=== PATIENT | male | born 1940 | race Two or more races ===

== ENCOUNTER 2018-06-22 20:51 | Inpatient (IN) | payer MEDICARE, OTHER ==
[~2018-06-22] VITALS: Ht 157.5 cm; Wt 67.6 kg
--- NOTE | 2018-06-22 21:00 | NUR ---
TO BED 10 BIB EMS FROM [facility] C/O BEING AGGRESSIVE TOWARD OTHERS. PT CONFUSED, AAOX4 NO ACUTE DISTRESS NOTED, RESP EVEN AND UNLABORED. PT DENIES PAIN OR DISCOMFORT AT THIS TIME. PENDING ER MD CHOUDHURY. PT CALM AND COOPERATIVE AT THIS TIME. WILL CONTINUE TO MONITOR PT CLOSELY.
--- NOTE | 2018-06-22 21:23 | NUR ---
COMMERCIAL ARTIST AT BEDSIDE FOR BLOOD DRAW. PT UNABLE TO PROVIDE URINE SAMPLE AT THIS TIME.
[2018-06-22] MEDS ORDERED: LORAZEPAM INJ 2 MG/ML VIAL IM ONE (21:30)
[2018-06-22] MEDS ORDERED: HALOPERIDOL LACTATE INJ 5 MG/ML VIAL IM ONE (21:30)
[2018-06-22] MEDS ORDERED: LORAZEPAM INJ 2 MG/ML VIAL ONE (21:31)
[2018-06-22] MEDS ORDERED: HALOPERIDOL LACTATE INJ 5 MG/ML VIAL ONE (21:31)
[2018-06-22 21:37] LABS: BASOPHILS % (AUTO) 0.3 % (0.0-2.0); EOSINOPHILS % (AUTO) 1.3 % (0.0-6.0); HEMATOCRIT 43 % (39-51); HEMOGLOBIN 14.7 g/dL (13.5-17.5); LYMPHOCYTES # (AUTO) 1.6 /CMM (0.8-4.8); MEAN CORPUSCULAR HGB CONC 34 g/dl (31.0-36.0); MEAN CORPUSCULAR VOLUME 89 fL (80-96); MONOCYTES # (AUTO) 0.6 /CMM (0.1-1.30); MONOCYTES % (AUTO) 10.5 % (2.0-12.0); NEUTROPHILS # (AUTO) 3.6 /CMM (1.8-8.9); NEUTROPHILS % (AUTO) 60.9 % (43.0-81.0); PLATELET COUNT (AUTO) 202 /CMM (150-450); RED BLOOD CELL COUNT(AUTO) 4.87 MIL/uL (4.5-6.0); WHITE BLOOD COUNT (AUTO) 5.8 K/uL (4.3-11.0)
[2018-06-22 21:45] LABS: CARBON DIOXIDE 28 mmol/L (21-32); CHLORIDE 98 mmol/L (98-107); CREATININE 1.2 mg/dL (0.6-1.3); GLUCOSE 187 mg/dL (74-106); POTASSIUM 4.9 mmol/L (3.5-5.1); SODIUM SERUM 136 mmol/L (136-145); UREA NITROGEN, BLOOD 13 mg/dL (7-18)
[2018-06-22] MEDS ORDERED: LIDOCAINE 2% JEL UROJET 10 ML MM ONE ×2 (21:45→23:30)
[2018-06-22 21:53] LABS: ACETAMINOPHEN < 2 ug/ml (10-30); ALANINE AMINOTRANSFERASE 43 U/L (12-78); ALBUMIN 3.7 g/dL (3.4-5.0); ALCOHOL, BLOOD < 3 mg/dL (0-0); ALKALINE PHOSPHATASE 89 U/L (46-116); ASPARTATE AMINOTRANSFERASE 30 U/L (15-37); BILIRUBIN,DIRECT 0.2 mg/dL (0.0-0.2); BILIRUBIN,TOTAL 0.5 mg/dL (0.2-1.0); SALICYLATE 1.2 mg/dL (2.8-20.0); TOTAL PROTEIN, SERUM 7.2 g/dL (6.4-8.2)
--- NOTE | 2018-06-22 22:15 | NUR ---
PLACE PT ON BILATERAL WRIST ERSTRAINTS PER ER BETTYE PEREZ ORDER DUE TO PT VERBALLY ABUSIVE AND KEEP THREATENING TO HIT STAFF. PT WAS ALSO NOTED WANDERING THE HALLWAY MULTIPLE TIMES.
[2018-06-22 23:13] LABS: APPEARANCE,URINE CLEAR (CLEAR); BILIRUBIN,URINE NEGATIVE (NEGATIVE); BLOOD, URINE TRACE-INTA Ery/uL (NEGATIVE); COLOR,URINE YELLOW (YELLOW); KETONES,URINE NEGATIVE (NEGATIVE); LEUKOCYTE ESTERASE ,URINE NEGATIVE (NEGATIVE); NITRITE, URINE NEGATIVE (NEGATIVE); PROTEIN,URINE NEGATIVE (NEGATIVE); UGLUCOSE NEGATIVE (NEGATIVE); UROBILINOGEN,URINE 0.2 EU/dL (0.2)
[2018-06-22 23:23] LABS: BACTERIA,URINE None seen /HPF (None Seen); SQUAMOUS EPITHELIAL CELL,UR Few /HPF (None Seen); WBC,URINE 0-2 /HPF (0-3)
--- NOTE | 2018-06-23 00:02 | NUR ---
PT ASLEEP, NO ACUTE DISTRESS NOTED, RESP EVEN AND UNLABORED. CALL LIGHT WIHTIN REACH. WILL CONTINUE TO MONITOR PT CLOSELY.
--- NOTE | 2018-06-23 00:38 | NUR ---
JACOBY BAHENA SUPERVISOR BRAIDING HERE FOR PSYCH EVAL.
--- NOTE | 2018-06-23 01:38 | NUR ---
REPORT CALLED TO CHU CHAVEZ. WILL TRANSPORT PT TO ROOM 211-B
[2018-06-23] MEDS ORDERED: DONE10TA44 PO (01:48)
[2018-06-23] MEDS ORDERED: BENA20TA9 PO (01:48)
[2018-06-23] MEDS ORDERED: MELA3TAB PO (01:48)
[2018-06-23] MEDS ORDERED: CLOT15CR63 TP (01:48)
[2018-06-23] MEDS ORDERED: MAGN400T6 PO (01:48)
[2018-06-23] MEDS ORDERED: OXCA300T15 PO ×2 (01:48→07:46)
--- NOTE | 2018-06-23 01:50 | NUR ---
Admitted a 78-year-old male from [facility] assisted living and evaluated at [facility] ER brought in by ER staff via wheelchair, on 5150 hold as GD, per hold patient is confused, disorganized, aggressive toward staff. Patient received Haldol, ativan and 2 point restraints d/t aggressive behavior. Patient admitting dx. is psychosis and medical dx. is dementia and hypertension. The patient is a DNR with primary goal of comfort care. Upon face to face evaluation, patient asleep, arousable to verbal and tactile stimuli, no sob, no acute distress, breathing even and unlabored, patient appeared confused, disorganized, easily agitated, refused to cooperate, alert and oriented x 1, and unable to sign paper works. Patient is under the care of Dr. Saravia and Dr. Gutierrez to reconcile the medication. Belonging inspected for contraband checking. All needs attended and met, will continue to monitor [id number] for safety
[2018-06-23] MEDS ORDERED: TRAZ-182 PO (01:56)
[2018-06-23] MEDS ORDERED: PIOG30TA10 PO (01:56)
[2018-06-23] MEDS ORDERED: QUET25TA PO (01:56)
[2018-06-23] MEDS ORDERED: CHOL50004 PO (01:56)
[2018-06-23] MEDS ORDERED: CALC-15 PO (01:56)
[2018-06-23] MEDS ORDERED: FLUO15CR TP (01:56)
[2018-06-23] MEDS ORDERED: CYAN50008 PO (01:56)
[2018-06-23] MEDS ORDERED: QUET100T PO (01:56)
[2018-06-23] MEDS ORDERED: ACETAMINOPHEN 325 MG TABLET PO PRN (02:30)
[2018-06-23] MEDS ORDERED: MAG HYDROX/AL HYDROX/SIMETH 30 ML UDC PO PRN (02:30)
[2018-06-23] MEDS ORDERED: MAGNESIUM HYDROXIDE 30 ML UDC PO PRN (02:30)
[2018-06-23 02:50] VITALS: BP 135/75
--- NOTE | 2018-06-23 04:48 | NUR ---
GPS RN NOTE: PATIENT IN STABLE CONDITION, NO SOB, NO ACUTE DISTRESS, BREATHING EVEN AND UNLABORED, ENDORSED FOR CONTINUITY OF CARE
[2018-06-23] MEDS ORDERED: clonazePAM 0.5 MG TABLET PO SCH (05:00)
[2018-06-23] MEDS ORDERED: CALC-7 PO (07:46)
[2018-06-23 08:00] VITALS: BP 130/80
[2018-06-23] MEDS: OXCARBAZEPINE 150 MG TABLET PO SCH ×2 (10:58→16:25)
[2018-06-23] MEDS: QUETIAPINE FUMARATE 25 MG TABLET PO SCH ×3 (10:58→16:25)
--- NOTE | 2018-06-23 11:59 | NUR ---
GIORGI GARCIA SKIN LAP BONDER IN THE UNIT AND MADE AWARE TO RECONCILE MEDS.
[2018-06-23 15:59] VITALS: BP 138/82
[2018-06-23] MEDS ORDERED: FLUOCINONIDE 0.05% CREAM 60 GM TUBE TP PRN (18:00)
[2018-06-23] MEDS ORDERED: DEXTROSE 50%-WATER 50 ML DISP.SYRIN IV PRN (18:00)
[2018-06-23 20:00] VITALS: BP 118/63
[2018-06-23] MEDS: TRAZODONE 50 MG TABLET PO SCH (21:16)
[2018-06-23] MEDS: BLOOD SUGAR DIAGNOSTIC 1 EACH STRIP IN SCH (21:16)
[2018-06-23] MEDS: DONEPEZIL 5 MG TABLET PO SCH (21:16)
[2018-06-23] MEDS: TEMAZEPAM 7.5 MG CAPSULE PO PRN (21:17)
[2018-06-24] MEDS: BLOOD SUGAR DIAGNOSTIC 1 EACH STRIP IN SCH ×4 (07:30→21:27)
[2018-06-24 08:01] VITALS: BP 151/87
[2018-06-24] MEDS: BENAZEPRIL HCL 10 MG TABLET PO SCH (08:50)
[2018-06-24] MEDS: OXCARBAZEPINE 150 MG TABLET PO SCH ×2 (08:50→16:23)
[2018-06-24] MEDS: PIOGLITAZONE HCL 15 MG TABLET PO SCH (08:51)
[2018-06-24] MEDS: CYANOCOBALAMIN 500 MCG TABLET PO SCH (08:51)
[2018-06-24] MEDS: QUETIAPINE FUMARATE 25 MG TABLET PO SCH ×3 (08:51→16:23)
[2018-06-24] MEDS: CHOLECALCIFEROL 1,000 UNIT TABLET (VIT D3) PO SCH (08:51)
[2018-06-24] MEDS: MAGNESIUM OXIDE 400 MG TABLET PO SCH (08:51)
[2018-06-24] MEDS: CALCIUM CARB 250MG /VITAMIN D 1 UDTAB PO SCH (08:51)
[2018-06-24] MEDS: CLOTRIMAZOLE 1% 15 GM TUBE TP SCH ×2 (08:56→16:23)
[2018-06-24 11:23] LABS: BASOPHILS % (AUTO) 0.3 % (0.0-2.0); EOSINOPHILS % (AUTO) 0.6 % (0.0-6.0); HEMATOCRIT 44 % (39-51); HEMOGLOBIN 15.2 g/dL (13.5-17.5); LYMPHOCYTES # (AUTO) 0.8 /CMM (0.8-4.8); LYMPHOCYTES % (AUTO) 13.1 % (20.0-44.0); MEAN CORPUSCULAR HGB CONC 35 g/dl (31.0-36.0); MEAN CORPUSCULAR VOLUME 87 fL (80-96); MONOCYTES # (AUTO) 0.5 /CMM (0.1-1.30); MONOCYTES % (AUTO) 8.3 % (2.0-12.0); NEUTROPHILS # (AUTO) 4.5 /CMM (1.8-8.9); NEUTROPHILS % (AUTO) 77.7 % (43.0-81.0); PLATELET COUNT (AUTO) 215 /CMM (150-450); RED BLOOD CELL COUNT(AUTO) 5.04 MIL/uL (4.5-6.0); WHITE BLOOD COUNT (AUTO) 5.8 K/uL (4.3-11.0)
[2018-06-24 11:36] LABS: ALANINE AMINOTRANSFERASE 58 U/L (12-78); ALKALINE PHOSPHATASE 79 U/L (46-116); ASPARTATE AMINOTRANSFERASE 46 U/L (15-37); BILIRUBIN,TOTAL 0.8 mg/dL (0.2-1.0); CALCIUM, SERUM 9.5 mg/dL (8.5-10.1); CARBON DIOXIDE 23 mmol/L (21-32); CHLORIDE 93 mmol/L (98-107); CREATININE 0.8 mg/dL (0.6-1.3); GLUCOSE 189 mg/dL (74-106); POTASSIUM 3.9 mmol/L (3.5-5.1); SODIUM SERUM 129 mmol/L (136-145); TOTAL PROTEIN, SERUM 7.6 g/dL (6.4-8.2); UREA NITROGEN, BLOOD 15 mg/dL (7-18)
[2018-06-24 11:37] LABS: CHOLESTEROL 149 mg/dL (<200); HDL CHOLESTEROL 48 mg/dL (40-60); LDL 99 mg/dL (0-99); TRIGLYCERIDES 52 mg/dL (30-150)
[2018-06-24 16:22] VITALS: BP 146/84
[2018-06-24 20:00] VITALS: BP 153/72
[2018-06-24] MEDS: DONEPEZIL 5 MG TABLET PO SCH (21:23)
[2018-06-24] MEDS: TRAZODONE 50 MG TABLET PO SCH (21:23)
[2018-06-24] MEDS: INSULIN REGULAR, HUMAN 100 UNIT/ML 3 ML VIAL SQ PRN (21:29)
[2018-06-24 23:00] VITALS: BP 136/78
[2018-06-24] MEDS: TEMAZEPAM 7.5 MG CAPSULE PO PRN (23:18)
[2018-06-25 07:09] LABS: CALCIUM, SERUM 9.8 mg/dL (8.5-10.1); CARBON DIOXIDE 25 mmol/L (21-32); CHLORIDE 93 mmol/L (98-107); CREATININE 0.9 mg/dL (0.6-1.3); GLUCOSE 181 mg/dL (74-106); POTASSIUM 4.3 mmol/L (3.5-5.1); SODIUM SERUM 130 mmol/L (136-145); UREA NITROGEN, BLOOD 19 mg/dL (7-18)
[2018-06-25] MEDS: BLOOD SUGAR DIAGNOSTIC 1 EACH STRIP IN SCH ×4 (07:46→21:49)
[2018-06-25] MEDS: INSULIN REGULAR, HUMAN 100 UNIT/ML 3 ML VIAL SQ PRN ×4 (07:48→22:03)
[2018-06-25 08:00] VITALS: BP 159/94
[2018-06-25] MEDS: MAGNESIUM OXIDE 400 MG TABLET PO SCH (08:52)
[2018-06-25] MEDS: PIOGLITAZONE HCL 15 MG TABLET PO SCH (08:52)
[2018-06-25] MEDS: CHOLECALCIFEROL 1,000 UNIT TABLET (VIT D3) PO SCH (08:53)
[2018-06-25] MEDS: CYANOCOBALAMIN 500 MCG TABLET PO SCH (08:53)
[2018-06-25] MEDS: OXCARBAZEPINE 150 MG TABLET PO SCH ×2 (08:53→18:05)
[2018-06-25] MEDS: QUETIAPINE FUMARATE 25 MG TABLET PO SCH ×3 (08:53→18:05)
[2018-06-25] MEDS: BENAZEPRIL HCL 10 MG TABLET PO SCH (08:53)
[2018-06-25] MEDS: CALCIUM CARB 250MG /VITAMIN D 1 UDTAB PO SCH (08:53)
[2018-06-25] MEDS: CLOTRIMAZOLE 1% 15 GM TUBE TP SCH ×2 (08:54→18:05)
--- NOTE | 2018-06-25 12:00 | NUR ---
SW contacted [facility] Address: [address] [place] [address] and spoke with Aisha, title coordinator who stated she needed to assess pt before being able to determine whether facility can take him back. OCTAVIO will fax clinical information once pt is stable.
--- NOTE | 2018-06-25 12:02 | NUR ---
SW contacted pts Kenna [phone] to discuss discharge planning and collateral information. SW informed pts that [facility] had stated that they would determine whether pt can return to facility upon an evaluation once pt is stable. SW provide pts with alternative discharge options such as a [facility]cfp. Pts will explore m[facility]p options.
--- NOTE | 2018-06-25 12:21 | NUR ---
INITIAL DISCHARGE PLAN: Patients Kenna [phone] wishes for pt to be discharged to [facility] Address: [address], [place] [address] . However, is willing to explore SNF options if Assisted Living Facility does not accept pt back. SW will help form a safe and proper discharge with pts and MD.
[2018-06-25] MEDS ORDERED: IV NS 0.9% 500 ML IV ONE (15:00)
[2018-06-25 16:00] VITALS: BP 147/71
[2018-06-25 20:02] VITALS: BP 173/62
[2018-06-25] MEDS: TRAZODONE 50 MG TABLET PO SCH (21:26)
[2018-06-25] MEDS: DONEPEZIL 5 MG TABLET PO SCH (21:26)
[2018-06-25] MEDS: TEMAZEPAM 7.5 MG CAPSULE PO PRN (23:08)
[2018-06-26] MEDS: BLOOD SUGAR DIAGNOSTIC 1 EACH STRIP IN SCH ×4 (07:56→21:34)
[2018-06-26 08:00] VITALS: BP 150/95
[2018-06-26] MEDS: QUETIAPINE FUMARATE 25 MG TABLET PO SCH ×3 (08:46→16:47)
[2018-06-26] MEDS: OXCARBAZEPINE 150 MG TABLET PO SCH ×2 (08:46→16:47)
[2018-06-26] MEDS: PIOGLITAZONE HCL 15 MG TABLET PO SCH (08:46)
[2018-06-26] MEDS: CHOLECALCIFEROL 1,000 UNIT TABLET (VIT D3) PO SCH (08:46)
[2018-06-26] MEDS: CALCIUM CARB 250MG /VITAMIN D 1 UDTAB PO SCH (08:46)
[2018-06-26] MEDS: CYANOCOBALAMIN 500 MCG TABLET PO SCH (08:46)
[2018-06-26] MEDS: BENAZEPRIL HCL 10 MG TABLET PO SCH (08:47)
[2018-06-26] MEDS: MAGNESIUM OXIDE 400 MG TABLET PO SCH (08:58)
[2018-06-26] MEDS: INSULIN REGULAR, HUMAN 100 UNIT/ML 3 ML VIAL SQ PRN ×3 (09:34→17:19)
[2018-06-26] MEDS: CLOTRIMAZOLE 1% 15 GM TUBE TP SCH ×2 (10:17→16:46)
[2018-06-26 16:03] VITALS: BP 133/73
[2018-06-26 16:32] LABS: CALCIUM, SERUM 9.6 mg/dL (8.5-10.1); CARBON DIOXIDE 25 mmol/L (21-32); CHLORIDE 92 mmol/L (98-107); CREATININE 0.9 mg/dL (0.6-1.3); GLUCOSE 186 mg/dL (74-106); POTASSIUM 4.1 mmol/L (3.5-5.1); SODIUM SERUM 130 mmol/L (136-145); UREA NITROGEN, BLOOD 23 mg/dL (7-18)
--- NOTE | 2018-06-26 17:36 | NUR ---
GPS/RN-NOTES INDUSTRIAL CLEANER YUDITH MADE AWARE OF PATIENT LAB RESULT OF NA130 AND BUN 23 WITH NNO.
[2018-06-26 19:54] VITALS: BP 129/84
[2018-06-26] MEDS: DONEPEZIL 5 MG TABLET PO SCH (21:34)
[2018-06-26] MEDS: TRAZODONE 50 MG TABLET PO SCH (21:34)
[2018-06-26] MEDS: TEMAZEPAM 7.5 MG CAPSULE PO PRN (22:21)
[2018-06-27] MEDS: BLOOD SUGAR DIAGNOSTIC 1 EACH STRIP IN SCH ×4 (07:30→21:57)
[2018-06-27 08:00] VITALS: BP 102/59
[2018-06-27] MEDS: OXCARBAZEPINE 150 MG TABLET PO SCH ×2 (08:53→16:35)
[2018-06-27] MEDS: PIOGLITAZONE HCL 15 MG TABLET PO SCH (08:53)
[2018-06-27] MEDS: CYANOCOBALAMIN 500 MCG TABLET PO SCH (08:54)
[2018-06-27] MEDS: CHOLECALCIFEROL 1,000 UNIT TABLET (VIT D3) PO SCH (08:54)
[2018-06-27] MEDS: QUETIAPINE FUMARATE 25 MG TABLET PO SCH ×3 (08:54→16:35)
[2018-06-27] MEDS: MAGNESIUM OXIDE 400 MG TABLET PO SCH (08:54)
[2018-06-27] MEDS: CALCIUM CARB 250MG /VITAMIN D 1 UDTAB PO SCH (08:54)
[2018-06-27] MEDS: BENAZEPRIL HCL 10 MG TABLET PO SCH (08:56)
[2018-06-27] MEDS: CLOTRIMAZOLE 1% 15 GM TUBE TP SCH ×2 (09:00→16:35)
[2018-06-27 16:00] VITALS: BP 128/73
--- NOTE | 2018-06-27 17:45 | NUR ---
GPS RN NOTE: PT NOTED WITH EXCORIATION ON HIS BUTTOCK AREA, WOUND CONSULT TRIGGERED, Z GUARD ORDERED , CN AWARE, PICTURE PLACED IN THE CHART . WILL CONTINUE MONITORING. Addendum: 06/27/18 at 1800 by ALYX LANDRY RN NURSING HARNESS BUILDER , LONNIE ZURITA PT WAS NOTIFIED.
[2018-06-27 20:00] VITALS: BP 152/88
[2018-06-27] MEDS: TRAZODONE 50 MG TABLET PO SCH (21:57)
[2018-06-27] MEDS: DONEPEZIL 5 MG TABLET PO SCH (21:57)
[2018-06-27] MEDS: INSULIN REGULAR, HUMAN 100 UNIT/ML 3 ML VIAL SQ PRN (21:58)
[2018-06-27] MEDS: TEMAZEPAM 7.5 MG CAPSULE PO PRN (23:09)
[2018-06-27 23:58] VITALS: BP 140/80
[2018-06-28] MEDS: BLOOD SUGAR DIAGNOSTIC 1 EACH STRIP IN SCH ×4 (07:38→22:07)
[2018-06-28 08:00] VITALS: BP 125/62
[2018-06-28] MEDS: QUETIAPINE FUMARATE 25 MG TABLET PO SCH ×3 (08:44→16:11)
[2018-06-28] MEDS: MAGNESIUM OXIDE 400 MG TABLET PO SCH (08:44)
[2018-06-28] MEDS: OXCARBAZEPINE 150 MG TABLET PO SCH ×2 (08:44→16:12)
[2018-06-28] MEDS: CHOLECALCIFEROL 1,000 UNIT TABLET (VIT D3) PO SCH (08:44)
[2018-06-28] MEDS: PIOGLITAZONE HCL 15 MG TABLET PO SCH (08:44)
[2018-06-28] MEDS: CYANOCOBALAMIN 500 MCG TABLET PO SCH (08:44)
[2018-06-28] MEDS: CALCIUM CARB 250MG /VITAMIN D 1 UDTAB PO SCH (08:44)
[2018-06-28] MEDS: Z GUARD REMEDY 4 OZ OINT TP SCH ×2 (08:45→16:17)
[2018-06-28] MEDS: BENAZEPRIL HCL 10 MG TABLET PO SCH (08:48)
[2018-06-28] MEDS: CLOTRIMAZOLE 1% 15 GM TUBE TP SCH ×2 (08:54→16:13)
--- NOTE | 2018-06-28 11:32 | NUR ---
OCTAVIO called Aisha ([phone]), medical staff coordinator at [facility], and informed her that the psychiatrist, Dr. Saravia, would like to have the facility assess the pt tomorrow so that if they do not take him back we can begin to look into other options. She stated that she would call the SW back if one of the nurses can make time to assess the pt.
--- NOTE | 2018-06-28 11:34 | NUR ---
OCTAVIO contacted pt's , Kenna ([phone]), and informed her that [facility] is going to assess the pt soon but we would like to have a backup option just in case. She stated that she did not like the nursing homes that were recommended to her and that she would like to consider [facility]. OCTAVIO referred her to [facility] and stated that she would provide more referrals if necessary.
--- NOTE | 2018-06-28 11:54 | NUR ---
Aisha ([phone]), event promotions coordinator at [facility], called the SW back and informed her that a nurse will be arriving the next day in the morning to assess the pt.
--- NOTE | 2018-06-28 12:32 | NUR ---
WOUND CARE CONSULT,SEEN PATIENT AT BEDSIDE, SEE WOUND ELIGIBILITY MANAGER IN [facility] FOR TODAY , MARIO 18 ,PATIENT NEEDS PROMPTING FOR REPOSITIONING,TX PLAN AND SKIN MANAGEMENT DISCUSSED WITH NURSING STAFF, WILL SEE PATIENT PRN Addendum: 06/28/18 at 1237 by SJ YUEN RN Amended: Links added.
[2018-06-28] MEDS: VITAMINS A AND D 56.7 GM TUBE TP SCH (15:24)
[2018-06-28 16:00] VITALS: BP 141/95
--- NOTE | 2018-06-28 17:16 | NUR ---
GPS RN NOTE: PER PT FAMILY REQUEST NOT TO GIVE INSULIN ,Cathleen ZURITA NOTIFIED T.O.ORDER DC INSULIN S/S , ORDER PLACED AND CARED OUT . WILL CONTINUE MONITORING.
[2018-06-28 20:00] VITALS: BP 122/76
[2018-06-28] MEDS: clonazePAM 0.5 MG TABLET PO PRN (22:07)
[2018-06-28] MEDS: TRAZODONE 50 MG TABLET PO SCH (22:07)
[2018-06-28] MEDS: DONEPEZIL 5 MG TABLET PO SCH (22:07)
[2018-06-29] MEDS: TEMAZEPAM 7.5 MG CAPSULE PO PRN ×2 (00:28→22:36)
[2018-06-29 08:00] VITALS: BP 152/76
--- NOTE | 2018-06-29 08:00 | NUR ---
GPS RN AM NOTES RECEIVED PT SLEEPING COMFORTABLY,AROUSABLE AND REFUSED BLOOD SUGAR CHECK,PT DOESN'T WANT TO BE BOTHERED.WILL TRY LATER. A&OX1, CONFUSED, DISORIENTED, DISORGANIZED, EASILY AGITATED, NEEDS FREQUENTLY REDIRECTIONS, COMPLIANT WITH MEDS, NO COMPLAIN OF PAIN/DISCOMFORT, NO S/S DISTRESS NOTED, NO ACUTE DISTRESS NOTED, WILL CONTINUE TO MONITOR FOR SAFETY AND BEHAVIOR [id number]
[2018-06-29] MEDS: CHOLECALCIFEROL 1,000 UNIT TABLET (VIT D3) PO SCH (08:25)
[2018-06-29] MEDS: PIOGLITAZONE HCL 15 MG TABLET PO SCH (08:25)
[2018-06-29] MEDS: OXCARBAZEPINE 150 MG TABLET PO SCH ×2 (08:25→16:55)
[2018-06-29] MEDS: MAGNESIUM OXIDE 400 MG TABLET PO SCH (08:25)
[2018-06-29] MEDS: BENAZEPRIL HCL 10 MG TABLET PO SCH (08:25)
[2018-06-29] MEDS: QUETIAPINE FUMARATE 25 MG TABLET PO SCH ×4 (08:25→17:00)
[2018-06-29] MEDS: clonazePAM 0.5 MG TABLET PO PRN ×2 (08:25→21:23)
[2018-06-29] MEDS: CALCIUM CARB 250MG /VITAMIN D 1 UDTAB PO SCH (08:25)
[2018-06-29] MEDS: VITAMINS A AND D 56.7 GM TUBE TP SCH (08:27)
[2018-06-29] MEDS: CYANOCOBALAMIN 500 MCG TABLET PO SCH (08:28)
[2018-06-29] MEDS: Z GUARD REMEDY 4 OZ OINT TP SCH ×2 (08:30→16:57)
[2018-06-29] MEDS: CLOTRIMAZOLE 1% 15 GM TUBE TP SCH ×2 (08:30→16:57)
[2018-06-29] MEDS: BLOOD SUGAR DIAGNOSTIC 1 EACH STRIP IN SCH ×4 (10:06→22:35)
--- NOTE | 2018-06-29 11:47 | NUR ---
Annette ([phone]), from [facility], came to assess the pt and stated that she just had a few concerns about the medications that she spoke to the pt's nurse about so that the message can be relayed to the psychiatrist. She then stated that she would be returning on Monday to see the pt and get the Physicians 602 form signed by the medical doctor.
--- NOTE | 2018-06-29 13:01 | NUR ---
PT SLEEPING BUT AROUSABLE.PT DOESN'T WANT TO BE BOTHERED.WILL CHECK BLOOD SUGAR LATER..
--- NOTE | 2018-06-29 13:24 | NUR ---
SW contacted pt's , Kenna ([phone]), and informed her that the pt was assessed by [facility] and that they have one medication adjustment that they are requesting before accepting the pt back.
[2018-06-29 16:00] VITALS: BP 106/80
--- NOTE | 2018-06-29 18:54 | NUR ---
PT SLEPT FOR 10 HRS AND JUST WAKES UP FOR MEALS.PT STAYED IN BED DURING THE SHIFT.SACRAL WOUND TX DONE TO EVERY INCONTINENT EPISODE.TURNED EVERY TWO HRS AND KEPT CLEAN AND DRY.DENIES ANY PAIN OR DISTRESS.WILL MONITOR.
[2018-06-29 20:00] VITALS: BP 119/61
[2018-06-29] MEDS: DONEPEZIL 5 MG TABLET PO SCH (22:35)
[2018-06-29] MEDS: TRAZODONE 50 MG TABLET PO SCH (22:35)
[2018-06-30] MEDS: BLOOD SUGAR DIAGNOSTIC 1 EACH STRIP IN SCH ×4 (07:38→21:29)
[2018-06-30 08:21] VITALS: BP 140/79
[2018-06-30] MEDS: OXCARBAZEPINE 150 MG TABLET PO SCH ×2 (09:00→17:21)
[2018-06-30] MEDS: MAGNESIUM OXIDE 400 MG TABLET PO SCH (09:00)
[2018-06-30] MEDS: CALCIUM CARB 250MG /VITAMIN D 1 UDTAB PO SCH (09:01)
[2018-06-30] MEDS: QUETIAPINE FUMARATE 25 MG TABLET PO SCH ×3 (09:01→17:21)
[2018-06-30] MEDS: CYANOCOBALAMIN 500 MCG TABLET PO SCH (09:02)
[2018-06-30] MEDS: BENAZEPRIL HCL 10 MG TABLET PO SCH (09:02)
[2018-06-30] MEDS: CHOLECALCIFEROL 1,000 UNIT TABLET (VIT D3) PO SCH (09:03)
[2018-06-30] MEDS: PIOGLITAZONE HCL 15 MG TABLET PO SCH (09:06)
[2018-06-30] MEDS: VITAMINS A AND D 56.7 GM TUBE TP SCH (10:16)
[2018-06-30] MEDS: Z GUARD REMEDY 4 OZ OINT TP SCH ×2 (10:16→17:21)
[2018-06-30] MEDS: CLOTRIMAZOLE 1% 15 GM TUBE TP SCH ×2 (10:16→17:22)
[2018-06-30 16:00] VITALS: BP 119/69
[2018-06-30 20:00] VITALS: BP 146/84
[2018-06-30] MEDS: TRAZODONE 50 MG TABLET PO SCH (21:29)
[2018-06-30] MEDS: clonazePAM 0.5 MG TABLET PO PRN (21:29)
[2018-06-30] MEDS: DONEPEZIL 5 MG TABLET PO SCH (21:29)
[2018-07-01] MEDS: BLOOD SUGAR DIAGNOSTIC 1 EACH STRIP IN SCH ×4 (07:33→22:00)
[2018-07-01 08:00] VITALS: BP 139/63
[2018-07-01] MEDS: OXCARBAZEPINE 150 MG TABLET PO SCH ×2 (08:19→16:45)
[2018-07-01] MEDS: CYANOCOBALAMIN 500 MCG TABLET PO SCH (08:19)
[2018-07-01] MEDS: CHOLECALCIFEROL 1,000 UNIT TABLET (VIT D3) PO SCH (08:19)
[2018-07-01] MEDS: CALCIUM CARB 250MG /VITAMIN D 1 UDTAB PO SCH (08:19)
[2018-07-01] MEDS: QUETIAPINE FUMARATE 25 MG TABLET PO SCH ×3 (08:20→16:45)
[2018-07-01] MEDS: BENAZEPRIL HCL 10 MG TABLET PO SCH (08:20)
[2018-07-01] MEDS: PIOGLITAZONE HCL 15 MG TABLET PO SCH (08:20)
[2018-07-01] MEDS: MAGNESIUM OXIDE 400 MG TABLET PO SCH (08:20)
[2018-07-01] MEDS: CLOTRIMAZOLE 1% 15 GM TUBE TP SCH ×2 (09:23→16:55)
[2018-07-01] MEDS: Z GUARD REMEDY 4 OZ OINT TP SCH ×2 (09:24→16:55)
[2018-07-01] MEDS: VITAMINS A AND D 56.7 GM TUBE TP SCH (09:24)
--- NOTE | 2018-07-01 10:10 | NUR ---
PT. REMOVED THE MEPILEX AND REFUSED TO PUT A NEW ONE AND STARTED TO BE IRRITABLE AND WILL OFFER LATER.
[2018-07-01 16:00] VITALS: BP 100/60
[2018-07-01 20:07] VITALS: BP 111/66
[2018-07-01] MEDS: DONEPEZIL 5 MG TABLET PO SCH (20:40)
[2018-07-01] MEDS: TRAZODONE 50 MG TABLET PO SCH (20:41)
[2018-07-02 08:00] VITALS: BP 136/66
[2018-07-02] MEDS: QUETIAPINE FUMARATE 25 MG TABLET PO SCH ×3 (08:36→17:39)
[2018-07-02] MEDS: BLOOD SUGAR DIAGNOSTIC 1 EACH STRIP IN SCH ×4 (08:36→22:04)
[2018-07-02] MEDS: CYANOCOBALAMIN 500 MCG TABLET PO SCH (08:37)
[2018-07-02] MEDS: BENAZEPRIL HCL 10 MG TABLET PO SCH (08:37)
[2018-07-02] MEDS: MAGNESIUM OXIDE 400 MG TABLET PO SCH (08:38)
[2018-07-02] MEDS: CHOLECALCIFEROL 1,000 UNIT TABLET (VIT D3) PO SCH (08:38)
[2018-07-02] MEDS: OXCARBAZEPINE 150 MG TABLET PO SCH ×2 (08:38→17:39)
[2018-07-02] MEDS: PIOGLITAZONE HCL 15 MG TABLET PO SCH (08:39)
[2018-07-02] MEDS: Z GUARD REMEDY 4 OZ OINT TP SCH (08:43)
[2018-07-02] MEDS: VITAMINS A AND D 56.7 GM TUBE TP SCH (08:43)
[2018-07-02] MEDS: CALCIUM CARB 250MG /VITAMIN D 1 UDTAB PO SCH (08:43)
[2018-07-02] MEDS: CLOTRIMAZOLE 1% 15 GM TUBE TP SCH ×2 (08:44→16:57)
--- NOTE | 2018-07-02 11:23 | NUR ---
Brissa ([phone]) from [facility] called the SW and inquired about the pt's behavior at the hospital and about the discharge plan.
--- NOTE | 2018-07-02 11:33 | NUR ---
SW contacted pt's , Kenna ([phone]), and she stated that she wants to move the pt to [facility] if they accept the pt. She would like to move the pt tomorrow and will let the SW know if the pt is accepted or not.
--- NOTE | 2018-07-02 12:46 | NUR ---
WOUND CARE CONSULT/FOLLOWUP: PT NO LONGER INCONTINENT. RASH/REDNESS IMPROVING TO INNER BUTTOCKS WITH CURRENT TREATMENT. DISCUSSED SKIN PROTECTION AND CARE WITH NURSING STAFF. WILL SEE PRN. Addendum: 07/02/18 at 1247 by EMEKA HUBBARD WNDNU Amended: Links added.
--- NOTE | 2018-07-02 14:15 | NUR ---
OCTAVIO faxed the physician's report and the 602 form to Priyanka from [facility] to the fax number: [phone].
[2018-07-02 16:00] VITALS: BP 100/56
[2018-07-02] MEDS: Z GUARD REMEDY 2 OZ OINT TP SCH (16:57)
--- NOTE | 2018-07-02 19:30 | NUR ---
GPS RN NOTE, RECEIVED PATIENT AWAKE AND IN BED, NO S/S OR COMPLAINTS OF PAIN AT THIS TIME. PATIENT IS DISPLAYING NO S/S OF APPARENT DISTRESS AT THIS TIME. PATIENT BREATHING IS UNLABORED WITH EQUAL RISE AND FALL OF THE CHEST. PATIENT IS ALERT AND ORIENTED X 1 ON ROOM AIR WITH A SPO2 OF 95%. PATIENT IS COMPLIANT WITH MEDICATION, COOPERATIVE, ANXIOUS, DISORGANIZED, PARANOID, AND NEEDS REDIRECTION. PATIENT IS CONFUSED BUT DENIES SUICIDE IDEATIONS AND HOMICIDAL IDEATIONS AT THIS TIME. PATIENT ASSISTED WITH TURNING AND REPOSITIONING Q 2HRS AND PRN FOR COMFORT AND CIRCULATION. PATIENT HAS NO NEEDS AT THIS TIME. PATIENT EDUCATED ON THE USE OF THE CALL AGUIRRE. PATIENT BED SIDE RAILS UP X 2 FOR SAFETY, BED IS LOCKED, LOW, AND I WILL CONTINUE TO MONITOR AND MAINTAIN SAFETY Q15 MIN WITH THE HELP OF STAFF.
[2018-07-02 20:19] VITALS: BP 114/69
[2018-07-02] MEDS: DONEPEZIL 5 MG TABLET PO SCH (21:26)
[2018-07-02] MEDS: TRAZODONE 50 MG TABLET PO SCH (21:26)
--- NOTE | 2018-07-02 22:04 | NUR ---
GPS RN NOTE, PERFORMED ACCU CHECK ON PATIENT WITH A BLOOD SUGAR RESULT OF 135. NO INSULIN GIVEN DUE THE FACT THAT THIS PATIENT HAS BEEN TAKEN OFF HIS INSULIN SLIDING SCALE ON 06/28/18. WILL CONTINUE TO MONITOR THIS PATIENT.
[2018-07-03] MEDS: BLOOD SUGAR DIAGNOSTIC 1 EACH STRIP IN SCH (07:48)
[2018-07-03 08:00] VITALS: BP 145/68
[2018-07-03] MEDS: QUETIAPINE FUMARATE 25 MG TABLET PO SCH (09:42)
[2018-07-03] MEDS: CHOLECALCIFEROL 1,000 UNIT TABLET (VIT D3) PO SCH (09:42)
[2018-07-03] MEDS: MAGNESIUM OXIDE 400 MG TABLET PO SCH (09:42)
[2018-07-03] MEDS: CALCIUM CARB 250MG /VITAMIN D 1 UDTAB PO SCH (09:42)
[2018-07-03] MEDS: OXCARBAZEPINE 150 MG TABLET PO SCH (09:42)
[2018-07-03] MEDS: CYANOCOBALAMIN 500 MCG TABLET PO SCH (09:42)
[2018-07-03] MEDS: PIOGLITAZONE HCL 15 MG TABLET PO SCH (09:42)
[2018-07-03 09:43] VITALS: BP 145/68
[2018-07-03] MEDS: BENAZEPRIL HCL 10 MG TABLET PO SCH (09:43)
[2018-07-03] MEDS: CLOTRIMAZOLE 1% 15 GM TUBE TP SCH (09:49)
[2018-07-03] MEDS: Z GUARD REMEDY 2 OZ OINT TP SCH (09:50)
[2018-07-03] MEDS: VITAMINS A AND D 56.7 GM TUBE TP SCH (09:50)
--- NOTE | 2018-07-03 11:30 | NUR ---
NURSING DISCHARGE NOTE: PT WAS DISCHARGED TODAY AT 1130 TO [facility] LOCATED AT [address] [place] [address], [place] [address]. . PT WAS PICKED UP BY SAYRA BOTELLO FROM [facility] AND LEFT THE UNIT VIA WHEELCHAIR ACCOMPANIED BY 1 ADMINISTRATIVE SALES ASSISTANT TO PRIVATE VEHICLE. PT IS A&OX1, CALM, COOPERATIVE, PLEASANT, CONFUSED AND FORGETFUL AT TIMES, REDIRECTABLE, DENIES SI/HI AT THE TIME OF DISCHARGE. NO S/S OF DISTRESS NOTED. NO C/O PAIN OR DISCOMFORT. PHOTOS OF PTS SKIN WERE TAKEN AND PLACED IN THE CHART. PT WAS COOPERATIVE WITH DISCHARGE PROCESS AND WAS ABLE TO SIGN ALL DISCHARGE PAPERWORK. DISCHARGE ORDER WAS OBTAINED FROM DR. GONZALES AND PT IS MEDICALLY STABLE FOR DISCHARGE PER DR. CAICEDO. ALL MEDS WERE EXPLAINED TO PT AND TO AYAN COLBERT AND VERBALIZED UNDERSTANDING OF INSTRUCTIONS. VS STABLE. ALL DISCHARGE PAPERWORK WAS GIVEN TO AYAN COLBERT AND EXPLAINED TO PT AND ADMINISTRATIVE SALES ASSISTANT WELL, THEY VERBALIZED UNDERSTANDING OF DISCHARGE INSTRUCTIONS.
--- NOTE | 2018-07-03 15:34 | NUR ---
Discharge Note: Pt was discharged to [facility] located at [id number] [place] [id number]; ([phone]). Pt was picked up by the facility around 11:30AM. Pts , Kenna ([phone]), was made aware of this discharge. Upon discharge, the pt presented with a euthymic mood and a calm affect. Pt denied both suicidal and homicidal ideation as well as both auditory and visual hallucinations. Pt will be under the care of his psychiatrist, Dr. 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 Roamno, located [address] [place] [address]; .
== END 2018-07-03 11:30 | DRG 885 ==
LOC: ER 20:54 → GPS 06-23 01:36
PROVIDERS: ADMIT Psychiatry & Neurology Psychiatry; ATTEND Psychiatry & Neurology Psychiatry
DX: F39 Unspecified mood [affective] disorder (principal); N17.0 Acute kidney failure with tubular necrosis; E11.65 Type 2 diabetes mellitus with hyperglycemia; E87.1 Hypo-osmolality and hyponatremia; I10 Essential (primary) hypertension; F29 Unspecified psychosis not due to a substance or known physiological condition; E86.1 Hypovolemia; F03.90 Unspecified dementia, unspecified severity, without behavioral disturbance, psychotic disturbance, mood disturbance, and anxiety; Z66 Do not resuscitate
CPT/HCPCS: 36415; 71045-TC; 80048-TC; 80053-TC; 80061-TC; 80076-TC; 80305; 81000-TC; 82962-TC; 85025-TC; 87081-TC; A6402; G0480; J1630; J1815; J2060; J3490; J7040